=== PATIENT | male | born 1940 | race Caucasian/White ===

== ENCOUNTER 2017-05-01 19:27 | Inpatient (IN) | payer BC, OTHER ==
[~2017-05-01] VITALS: Ht 175.3 cm; Wt 65.8 kg
[2017-05-01] MEDS ORDERED: ONDANSETRON 4 MG/2 ML VIAL IM PRN (21:15)
[2017-05-01] MEDS ORDERED: IBUPROFEN 400 MG TABLET PO PRN (21:15)
[2017-05-01] MEDS ORDERED: DICYCLOMINE HCL 20 MG TABLET PO PRN (21:15)
[2017-05-01] MEDS ORDERED: LORAZEPAM 1 MG TABLET PO PRN ×2 (21:15)
[2017-05-01] MEDS ORDERED: ONDANSETRON ODT 4 MG TAB.RAPDIS SL PRN (21:15)
[2017-05-01] MEDS ORDERED: MAG HYDROX/AL HYDROX/SIMETH 30 ML LIQUID UDC PO PRN (21:15)
[2017-05-01] MEDS ORDERED: CLONIDINE HCL 0.1 MG TABLET PO PRN (21:15)
[2017-05-01] MEDS ORDERED: MAGNESIUM HYDROXIDE 30 ML LIQUID UDC PO PRN (21:15)
[2017-05-01] MEDS ORDERED: THIAMINE HCL 200 MG/2 ML VIAL IM ONE (21:15)
[2017-05-01] MEDS ORDERED: LORAZEPAM 2 MG/1 ML VIAL IM PRN (21:15)
[2017-05-01] MEDS ORDERED: LOPERAMIDE HCL 2 MG CAPSULE PO PRN ×2 (21:15)
[2017-05-01] MEDS ORDERED: ACETAMINOPHEN 325 MG TABLET PO PRN (21:15)
[2017-05-01] MEDS ORDERED: MIRALAX 17 GM POWD.PACK PO PRN (21:15)
[2017-05-01 21:30] VITALS: BP 112/82
--- NOTE | 2017-05-01 21:30 | NUR ---
Pre-admission assessment Patient is a 76-year old, male, seen at intake, AAOx4, no SOB and with anxiety and gross tremors noted at this time. Pt appears intoxicated, verbalized that he is ETOH dependent and last alcohol consumed was today at 1800. Discussed with patient admission policies of the unit. Patient is coherent and able to respond to questions appropriately. Patient reported that he is homeless. Pt is ambulatory with unsteady gait, with use of assistive device to ambulate. Pt reports that for the past 50 years he has been consuming alcohol, with drinking over the last 3 years getting more "problematic" per pt. He reports drinking about 750 ml of Vodka daily and consumed red wine and beer intermittently. Pt refused taking other substances. Vital signs taken and as follows: GZ=653/82, P=72, O2 sat on RA=98%, RR=20, T=97.8. Pt verbalized understanding of instructions and teachings regarding disposal of narcotic and other controlled home meds, unit protocols such as taking of vital signs Q4H and handling and disposal of contraband.
[2017-05-01 21:59] LABS: *AMPHETAMINE, URINE NEGATIVE (NEGATIVE); *BARBITURATE, URINE NEGATIVE (NEGATIVE); *CANNABINOID, URINE NEGATIVE (NEGATIVE); *COCCAINE, URINE NEGATIVE (NEGATIVE); *OPIATE, URINE NEGATIVE (NEGATIVE); *PHENCYCLIDINE SCREEN,URINE NEGATIVE (NEGATIVE)
[2017-05-01 22:05] LABS: ALANINE AMINOTRANSFERASE 52 U/L (16-63); ALKALINE PHOSPHATASE 74 U/L (50-136); AMYLASE 51 U/L (25-115); ASPARTATE AMINOTRANSFERASE 62 U/L (15-37); BILIRUBIN,TOTAL 0.5 mg/dL (0.2-1.0); CARBON DIOXIDE 27 mmol/L (21-32); CHLORIDE 104 mmol/L (98-107); CREATININE 0.8 mg/dL (0.6-1.3); GLUCOSE 95 mg/dL (74-106); LIPASE 327 U/L (73-393); POTASSIUM 3.7 mmol/L (3.5-5.1); TOTAL PROTEIN, SERUM 7.8 g/dL (6.4-8.2); UREA NITROGEN, BLOOD 9 mg/dL (7-18)
[2017-05-01 22:08] LABS: BASOPHILS % (AUTO) 0.3 % (0.0-2.0); EOSINOPHILS # (AUTO) 0.1 K/uL (0.0-0.7); EOSINOPHILS % (AUTO) 1.1 % (0.0-7.0); ETHANOL 347 MG/DL (0-0); HEMATOCRIT 43.2 % (40-50); HEMOGLOBIN 14.7 G/DL (14.0-18.0); LYMPHOCYTES # (AUTO) 2.8 K/UL (0.8-4.8); LYMPHOCYTES % (AUTO) 50.3 % (20.5-51.5); MEAN CORPUSCULAR HGB CONC 34 g/dL (32.0-37.0); MEAN CORPUSCULAR VOLUME 100.2 FL (82.0-92.0); MONOCYTES # (AUTO) 0.6 K/UL (0.1-1.30); MONOCYTES % (AUTO) 10.5 % (0.0-11.0); NEUTROPHILS # (AUTO) 2.2 K/UL (1.8-8.9); NEUTROPHILS % (AUTO) 37.8 % (38.5-71.5); PLATELET COUNT (AUTO) 190 K/UL (150-450); RED BLOOD CELL COUNT(AUTO) 4.32 MIL/UL (4.7-6.1); WHITE BLOOD COUNT (AUTO) 5.7 K/UL (4.0-11.2)
[2017-05-01] MEDS ORDERED: LORAZEPAM 1 MG TABLET PO ONE (22:15)
--- NOTE | 2017-05-01 22:15 | NUR ---
ADMISSION Patient is a 76-year old, male, admitted and escorted by [facility] at 2150 to unit. Patient verbalized that he lives with his and son. Skin check done, no open skin noted. With discoloration of BUE Patient denies Suicidal Ideation nor Homicidal Ideation. No edema noted. Pt is ambulatory with use of assistive device due to unsteady gait. Pt stands 5'9" and weighs 145 pounds per bed scale. Vital signs are as follows: BP-118/83, T-97.7, P-82, RR-18 and SPO2 on RA=98%. Patient is AAOx4 and with with anxiety noted at this time. Lung sounds clear bilaterally upon auscultation. No cough noted and bowel sounds are present on all quadrants. PERRLA and pupils are 2 mm upon visual check. Pt reports NKA, on Regular Diet and is Full Code. Pt denies history of seizure. Per pt, withdrawal symptoms are sweating, chills, flushed skin, nausea, anxiety, depression, fatigue, agitation and gross tremors. Pt reports that he is dependent on ETOH as prefers Vodka. Per pt, he started drinking at age 20 but over the past 3 years has been drinking Vodka 750 ml daily and intermittent with red wine and beer. Last consumed was today at 1800, consumed 375 ml of Vodka and 8-oz beer. Patient verbalized the he does not take other substances besides the one mentioned above. Patient informed PMHx of Anxiety, Depression, Atrial Fibrillation with Pacemaker, Hypertension, Bilateral Knee Surgery in and 2015, Hernia Repair in 2012, BPH and Arthritis. Per pt, his Donor Center Technician is Dr. Short at [facility] and that he has no Psychiatrist. Med recon done. Patient reports he quit smoking more than 20 years ago. Oriented patient to room and instructed with the use of the call light, placed within reach. Fall, universal, seizure and safety precautions implemented. No c/o significant pain at this time. All needs met. Information relayed to Dr. Aranda. Patient refused PNA vaccine and Flu vaccine is out of season. Encouraged patient to use call button for ambulation because Dr. Aranda ordered ambulation with use of wheelchair. Pt verbalized understanding. DVT pumps set-up and patient requested for intermittent use of DVT pumps. CIWA=6. Will continue to monitor.
[2017-05-01 22:28] LABS: THYROID STIMULATING HORMONE 4.486 mIU/mL (0.358-3.740)
[2017-05-01] MEDS ORDERED: LORAZEPAM 1 MG TABLET ONE (23:28)
[2017-05-01] MEDS ORDERED: THIAMINE HCL 200 MG/2 ML VIAL ONE (23:46)
[2017-05-02] VITALS (7 sets, daily range): BP systolic 109–141; BP diastolic 68–95
[2017-05-02] MEDS ORDERED: HYDR-3980 PO (02:15)
[2017-05-02] MEDS ORDERED: ALFU10TA10 PO (02:15)
[2017-05-02] MEDS ORDERED: AMOX500C2 PO (02:15)
[2017-05-02] MEDS ORDERED: DIGO250T PO (02:15)
[2017-05-02] MEDS ORDERED: ATOR80TA PO (02:15)
[2017-05-02] MEDS ORDERED: RIVA20TA PO (02:15)
--- NOTE | 2017-05-02 07:15 | NUR ---
End of Shift Patient is a 76-year old, male, admitted for ETOH Dependence. Pt is Full Code, with NKA and on Regular Diet. Pt with history of A-Fib with Pacemaker, Hypertension, BPH, Bilateral Knee Surgery in 2011 and 2015, Hernia Repair in 2012 and Arthritis. Pt placed by Dr. Aranda on 5-day Ativan taper, to start 05/02/2017. Pt is AAOx4, no SOB noted. Pt with unsteady gait, ambulates with wheelchair and per MD order. With DVT pumps at bedside. Pt uses the pumps intermittently despite explanation of risks and benefits of using the pumps. No skin issues. Fall, universal, seizure and safety prec in place. Call light within reach. Latest CIWA=4, slept for 5 hours. Endorsed to AM shift nurse for continuity of care.
[2017-05-02] MEDS ORDERED: TUBERCULIN,PURIF.PROT.DERIV. 5 TU/0.1 ML TEST ID ONE (09:00)
[2017-05-02] MEDS ORDERED: POTASSIUM CHLORIDE 10 MEQ CAPSULE.SA PO ONE (09:00)
[2017-05-02] MEDS: FOLIC ACID 1 MG TABLET PO SCH (09:15)
[2017-05-02] MEDS: THIAMINE HCL 100 MG TABLET PO SCH (09:15)
[2017-05-02] MEDS: LORAZEPAM 1 MG TABLET PO SCH ×4 (09:15→21:02)
[2017-05-02] MEDS: MULTIVITAMINS,THERAPEUTIC TABLET PO SCH (09:15)
--- NOTE | 2017-05-02 10:55 | NUR ---
START OF SHIFT: RECEIVED PT A/O X 4. HE IS LAYING IN BED WATCHING TV. FINE TREMORS NOTED TO HANDS. HE C/O SOME ANXIETY. ENCOURAGED FLUID AND REST. CIWA 6. ATIVAN TAPER IN PROGRESS TO MANAGE S/S OF W/D. PPD PLANTED TO LFA. PT HAS W/C AT BEDSIDE FOR AMBULATION. CALL WOLFF IN REACH. BED LOCKED AND LOW. WILL CONTINUE TO PROVIDE SAFE AND SUPPORTIVE ENVIRONMENT.
[2017-05-02] MEDS: DIGOXIN 250 MCG TABLET PO SCH (13:04)
--- NOTE | 2017-05-02 15:00 | NUR ---
Pt seen and examined by Dr. Gomez
[2017-05-02] MEDS: RIVAROXABAN 10 MG TABLET PO SCH (17:32)
--- NOTE | 2017-05-02 19:16 | NUR ---
END OF SHIFT: PT CONTINUES ON ATIVAN TAPER. LAST CIWA 8. HE IS ON BED REST AND NEEDS ASSISTANCE WITH BATHROOM AND W/C FOR AMBULATION. HE C/O WEAKNESS AND ANXIETY. HE USES CALL WOLFF DIRECTED. BED LOCKED AND LOW. HE WAS ON BED REST TODAY AND COMPLIANT WITH INCREASED FLUIDS. WILL PASS SHIFT REPORT TO ONCOMING NIGHT NURSE.
--- NOTE | 2017-05-02 20:00 | NUR ---
START OF SHIFT NOTE RECEIVED REPORT FROM DAY SHIFT NURSE. PATIENT IS A 76 YEAR OLD MALE, ADMITTED FOR ETOH DEPENDENCE.PATIENT IS ON 5 DAY ATIVAN TAPER . PATIENT USES ASSISTIVE DEVICE DUE TO UNSTEADY GAIT. PATIENT NEEDS MODERATE ASSISTANCE WITH ADLS. PATIENT WITH PACEMAKER D/T AFIB (ON XARELTO). SCD PUMP AT BEDSIDE. NO SEIZURE HISTORY. PATIENT DID NOT REQUIRE ANY PRN MEDICATION . LAST CIWA 8. PATIENT WITH BUE DISCOLORATION. ON FALL/SEIZURE PRECAUTION. SAFETY MEASURES IN PLACE. CALL LIGHT IN REACH. WILL CONTINUE TO MONITOR
[2017-05-02] MEDS: ALFUZOSIN HCL 10 MG TAB.SR.24H PO SCH (21:02)
[2017-05-02] MEDS: ATORVASTATIN 40 MG TABLET PO SCH (21:02)
[2017-05-03] VITALS (8 sets, daily range): BP systolic 80–156; BP diastolic 60–104
[2017-05-03] MEDS: diphenhydrAMINE 50 MG CAPSULE PO PRN ×2 (03:26→22:50)
--- NOTE | 2017-05-03 03:26 | NUR ---
PRN BENADRYL ADMINISTRATION PATIENT UNABLE TO STAY ASLEEP. PRN BENADRYL GIVEN. WILL MONITOR FOR EFFECTIVENESS
--- NOTE | 2017-05-03 04:26 | NUR ---
CISCO PERDUE RE-ASSESSMENT PATIENT IN BED WITH HIS EYES CLOSED. RESPIRATION EVEN AND UNLABORED. SAFETY MEASURES IN PLACE. CALL LIGHT IN REACH. WILL CONTINUE TO MONITOR
--- NOTE | 2017-05-03 07:05 | NUR ---
Start of Shift Report from the night nurse: pt is a 76 y/o male here for ETOH r/t Vodka and beer 750nmL: 5 day Ativan taper ordered. Pt is a full code, regular diet, NKA, fall and seizure precautions ordered. HHx: pacemaker with A.fib and pt is on Lanoxin and Xarelto, Bilateral knee replacement, HTN, BPH, Arthritis and Hernia repain 2012, Syncope on the second week of April. V/S stable. Skin is intact with no open wounds. Pt is confused with unsteady gait and uses W/C Pt has B&B incontinence with diaper and urinal at bed side. Pt has VTE 3 so SCD in use. PRN Benadryl given last night for sleep. Last CIWA 4. Pt is asleep in yelena. WIll cont. to monitor the pt.
--- NOTE | 2017-05-03 07:21 | NUR ---
END OF SHIFT NOTE PATIENT IS A 76 YEAR OLD MALE, ADMITTED FOR ETOH DEPENDENCE.PATIENT IS ON 5 DAY ATIVAN TAPER . PATIENT USES ASSISTIVE DEVICE DUE TO UNSTEADY GAIT. PATIENT NEEDS MODERATE ASSISTANCE WITH ADLS. PATIENT WITH PACEMAKER D/T AFIB (ON XARELTO). SCD PUMP AT BEDSIDE. NO SEIZURE HISTORY. PATIENT WITH BUE DISCOLORATION. PATIENT PATIENT NOTED UNABLE TO STAY ASLEEP, PRN BENADRYL GIVEN. PATIENT NOTED WITH MILD CONFUSION, REDIRECTION PROVIDED. PATIENT RE-ORIENTED TO USE CALL LIGHT FOR ASSISTANCE. ON FALL/SEIZURE PRECAUTION. SAFETY MEASURES IN PLACE. CALL LIGHT IN REACH. WILL CONTINUE TO MONITOR. SLEPT 5 HOURS. FLUID INTAKE 500 ML. VOIDED X 1. BM X 1. LAST CIWA 4 .
--- NOTE | 2017-05-03 07:30 | NUR ---
MD communication Pt noted to have an SpO2 79-83% on RA and a BP of 80/60. Dr Aranda notified ordered stat EKG, CXR and 1:1 sitter. Orders entered, unable to enter orders.
--- NOTE | 2017-05-03 07:35 | NUR ---
Desaturation, Hypotension, Dysrhythmia & MD Communication During the start of my shift I'm notified by DANDY TENDER that the pt's SpO2 87% on RA, so I assess pt's status with the pt in room alert, confused, disoriented, denies chest pain, c/o light headedness while resting in bed with gross tremors and chills, BLE's and BUE's cool to touch, the pulse oximeter is on pt's left index finger SpO2 is 80-82% RA, BP 80/60 in semi-fowlers, HR 69, RR 14, T 98.1; NC 2LPM given to get the oxygen only to 87% so Simple mask ineffective at 5LPM so NRM 15L given and is effective with multiple heat pads blankets causing increased tissue perfusion and SpO2 increase to 98%. I called Dr. Aranda and new orders for EKG, CXR, PO water with 2 bottles of water and a sitter 1:1 for safety STAT. I changed the NRM to Simple mask at 5LPM to keep SpO2 94-95% stable with Respiratory Therapist assistance during 12 lead EKG. BP increased to 104/60 with manual BP & AP 66 bpm with irregular heart beats. EKG results of PVC's & A.fib with Dr. Aranda notified; new orders in progress. I will cont. to monitor the pt.
--- NOTE | 2017-05-03 08:45 | NUR ---
New Orders & Medication Non-Administration Ativan New Orders for Chem 22, BMP, Troponin, BNP, Echo, and MD Consult with Technical Engineer and to HOLD the Ativan 0900am dose so no Ativan given at this time. Will cont. to monitor the pt.
[2017-05-03] MEDS: LORAZEPAM 1 MG TABLET PO SCH ×2 (09:00→15:27)
[2017-05-03 09:54] LABS: BASOPHILS % (AUTO) 0.4 % (0.0-2.0); EOSINOPHILS # (AUTO) 0.1 K/uL (0.0-0.7); HEMATOCRIT 41.7 % (40-50); HEMOGLOBIN 14.2 G/DL (14.0-18.0); LYMPHOCYTES # (AUTO) 0.9 K/UL (0.8-4.8); LYMPHOCYTES % (AUTO) 17.4 % (20.5-51.5); MEAN CORPUSCULAR HEMOGLOBIN 33.7 UUG (27.0-31.0); MEAN CORPUSCULAR HGB CONC 34 g/dL (32.0-37.0); MEAN CORPUSCULAR VOLUME 99.1 FL (82.0-92.0); MONOCYTES # (AUTO) 0.8 K/UL (0.1-1.30); MONOCYTES % (AUTO) 15.2 % (0.0-11.0); NEUTROPHILS # (AUTO) 3.6 K/UL (1.8-8.9); PLATELET COUNT (AUTO) 156 K/UL (150-450); RED BLOOD CELL COUNT(AUTO) 4.21 MIL/UL (4.7-6.1); WHITE BLOOD COUNT (AUTO) 5.4 K/UL (4.0-11.2)
[2017-05-03 09:55] LABS: CARBON DIOXIDE 29 mmol/L (21-32); CHLORIDE 99 mmol/L (98-107); CREATININE 0.8 mg/dL (0.6-1.3); GLUCOSE 124 mg/dL (74-106); POTASSIUM 3.9 mmol/L (3.5-5.1); UREA NITROGEN, BLOOD 6 mg/dL (7-18)
[2017-05-03] MEDS: THIAMINE HCL 100 MG TABLET PO SCH (10:04)
[2017-05-03] MEDS: FOLIC ACID 1 MG TABLET PO SCH (10:05)
[2017-05-03] MEDS: DIGOXIN 250 MCG TABLET PO SCH (10:05)
[2017-05-03] MEDS: MULTIVITAMINS,THERAPEUTIC TABLET PO SCH (10:05)
[2017-05-03 10:08] LABS: MAGNESIUM 1.5 mg/dL (1.8-2.4); PHOSPHOROUS 3.8 mg/dL (2.5-4.9)
[2017-05-03] MEDS ORDERED: MAGNESIUM OXIDE 400 MG TABLET PO ONE (10:15)
--- NOTE | 2017-05-03 10:20 | NUR ---
New Orders New result of low Mg 1.[address] Aranda notified and new order for Mag-Ox 800mg ONCE given as ordered. New Orders for Digoxin titration before next dose tomorrow.
[2017-05-03 10:54] LABS: EOSINOPHILS % (MANUAL) 2 % (0-8); LYMPHOCYTES % (MANUAL) 17 % (20-40); MONOCYTES % (MANUAL) 11 % (2-10); NEUTROPHILS % (MANUAL) 70 % (42-75)
[2017-05-03 13:09] LABS: HEPATITIS B SURFACE AG Negative (Negative)
--- NOTE | 2017-05-03 15:28 | NUR ---
Therapist prompted client to attend daily group sessions. Client stated that he would consider attending.
[2017-05-03] MEDS ORDERED: IV NS 1000 ML 500 ML IV SCH (16:00)
--- NOTE | 2017-05-03 16:00 | NUR ---
New Orders-IVF Infusion New orders for NS 0.9% 500mL running at 50cc/H given ONCE, so started a #22g LAC with IVF running as ordered and no infiltration noted. Precision Thread Grinder Operator consult and the MD evaluated the pt on RA for 2 minutes with pt stable on RA so new order to HOLD on the Simple Mask 6LPM since the pt is stable with SpO2 97% RA. No new orders recommended from the adobe flex developer since the pt is stable. Will cont. to monitor the pt with sitter 1:1 at bed side.
[2017-05-03] MEDS: RIVAROXABAN 10 MG TABLET PO SCH (17:55)
--- NOTE | 2017-05-03 19:36 | NUR ---
End of Shift Report to the night nurse: pt is a 76 y/o male here for ETOH r/t Vodka and beer 750nmL: 5 day Ativan taper ordered. Pt is a full code, regular diet, NKA, fall and seizure precautions ordered. HHx: pacemaker with Agustín and pt is on Lanoxin and Xarelto with new orders for Dig Titration tomorrow, Bilateral knee replacement, HTN, BPH, Arthritis and Hernia repair 2012, Syncope on the second week of April. V/S unstable with episodes of destat and O2 used during my shift and new orders for NS 500mL at 50cc/H with #22G LAC running as ordered. Dysrhythmia during my shift for cardiac consult, Echo done, EkG 12 lead done and cardiac enzymes, CBC Chem 22 done and new orders for Mag-Ox 800mg with low Mag 1.5 during my shift. Skin is intact with no open wounds. Pt is confused with unsteady gait and on CBR with new order for sitter during my shift. Pt has B&B incontinence with diaper and urinal at bed side, assistance to BR is pt insists. Pt has VTE 3 so SCD in use. Pt excused from group therapy. Last CIWA 7.
--- NOTE | 2017-05-03 19:45 | NUR ---
Start of Shift Note: Report received from day shift nurse. Pt is a 76 yo male admitted on 05/01/2017 for medically-supervised withdrawal from ETOH. Pt reported drinking 750ml vodka daily for > 3 years. Pt on a 5-day Ativan taper. Pt received with last CIWA=7, and no PRN medications were given during day shift; Mag-Ox was given for hypomagnesia. Pt is a full code, is on a regular diet, and reports NKA. Pt has 22G in left AC running NS at 50mls/hr. PMHx: a-fib with pacemaker and on Xarelto and Digoxin, HTN, BPH, bilateral knee sx, hernia repair, arthritis. Pt received in room and reports anxiety; pt noted to be restless, agitated AEB repeated pulling at IV dressing and bedding, moderate tremor, disoriented to place and time. Pt reports confusion and auditory and visual hallucination with mild tactile disturbances. Lungs are CTA throughout, no edema noted. Bed is in low position and locked, side rails up x2, call light within reach. Will continue to monitor.
[2017-05-03] MEDS: ALFUZOSIN HCL 10 MG TAB.SR.24H PO SCH (20:57)
[2017-05-03] MEDS: ATORVASTATIN 40 MG TABLET PO SCH (20:57)
[2017-05-03] MEDS ORDERED: LORAZEPAM 1 MG TABLET PO SCH (21:00)
--- NOTE | 2017-05-03 22:50 | NUR ---
PRN Benadryl: Patient noted to be restless and unable to sleep. Administered PRN Benadryl as ordered. Will continue to monitor.
[2017-05-03] MEDS ORDERED: LORAZEPAM 1 MG TABLET PO PRN ×2 (23:15)
[2017-05-03] MEDS ORDERED: LORAZEPAM 1 MG TABLET PO ONE (23:15)
--- NOTE | 2017-05-03 23:29 | NUR ---
Communication/Ativan 2mg x1: Patient restless, agitated, anxious, pulling at clothing and IV line; reports visual and auditory hallucinations, and disoriented by time and place. CIWA is 24. Dr Aranda contacted and Ativan 2mg PO x1 ordered. Medication administered as ordered. Will continue to monitor.
[2017-05-03] MEDS ORDERED: LORAZEPAM 1 MG TABLET ONE (23:39)
--- NOTE | 2017-05-03 23:50 | NUR ---
PRN Reassessment: Patient reports continuing inability to sleep. PRN Benadryl not effective. Will notify MD and continue to monitor
[2017-05-04] VITALS: BP 131/99
--- NOTE | 2017-05-04 00:30 | NUR ---
Ativan 2mg x1 Reassessment: CIWA decreased from 24 to 12 one hour after Ativan 2mg PO administered; patient is slightly less agitated, but still restless and disoriented despite multiple attempts at reorientation.
--- NOTE | 2017-05-04 03:49 | NUR ---
Behavioral Note: Patient is repeatedly trying to get out of bed, taking off his clothes, pulling at IV line, and removing bedding; when asked what he needs to get out of bed for, he replies that he does not know. Patient noted to be talking to himself, and responding to staff radio that nurse has on person. Patient requires repeated and frequent reorienting and redirection. Patient is non-compliant with urinal and insists on getting up out of bed to urinate, despite being unsteady on his feet and frequent reminders to ask [employer] DRIVER and nurse for help transferring. Patient continues on 1:1 with [employer] DRIVER for safety. All safety precautions are in place. Will continue to monitor.
[2017-05-04 04:30] VITALS: BP 132/95
--- NOTE | 2017-05-04 05:05 | NUR ---
PRN Ativan 2mg: Patient disoriented by place and time >2 days, noted with moderate tremor and unable to hold drink. ORNAMENTAL METALWORK DESIGNER reports that patient is having conversations with himself and not making sense. CIWA is 17. Administered PRN Ativan 2mg PO as ordered according to CIWA score. Will continue to monitor. Addendum: 05/04/17 at 0522 by ROBERTO NUNEZ RN Patient repeatedly removing all of his clothing and trying to get out of bed. Patient often refuses to get back in bed while unsteady on feet, and refuses assistance to transfer
[2017-05-04] MEDS ORDERED: LORAZEPAM 1 MG TABLET ONE (05:11)
--- NOTE | 2017-05-04 06:05 | NUR ---
PRN Reassessment: CIWA decreased from 17 to 11 thirty minutes after PRN Ativan 2mg administration.
--- NOTE | 2017-05-04 07:15 | NUR ---
End of Shift Note: Pt is a 76 yo male admitted to [facility] on 05/01/2017 for medically-supervised withdrawal from ETOH. Pt reported a PMHx of A-fib with pacemaker (Xarelto and Digoxin), HTN, BPH, bilateral knee sx, hernia repair, and arthritis. Pt is a full code. Pt is on a regular diet. Pt reports NKA. Pt has 22G SL in right AC. Pt reported drinking 750ml vodka daily for > 3 years, and was placed on a 5-day Ativan taper. Scheduled medication regime managed s/s of withdrawal this shift, and Ativan 2mg PO x2 was required for elevated CIWA(24, 17) with disorientation and hallucinations. Last CIWA=11 at 06:00.V/S stable throughout shift. Total fluid intake this shift: 1200 ml; output: urine x 6 and BM x 0. PRN Benadryl was given for inability to sleep, which was not effective and pt slept 30 minutes this shift. Pt is currently in bed, all needs attended and met. Pt continues on 1:1 for safety. Pt endorsed to day shift nurse.
--- NOTE | 2017-05-04 07:30 | NUR ---
START OF SHIFT Rcvd endorsement from ongoing nurse, client is is bed, a/o x 3, client presents with anxious mood, fine tremors, flashed face. he is on a 1:1 sitter for unsteady gait, promoting safety. He has fading skin discolorations on bilateral arm, skin intact. Hep lock on R AC 22G intact/patent. Client is a 76 yo male admitted to [facility] on 05/01/2017 for medically-supervised withdrawal from ETOH. He is on day 2nd of 5 Ativan taper, tolerating well. Client reported a PMHx of A-fib with pacemaker (Xarelto and Digoxin), HTN, BPH, bilateral knee sx, hernia repair, and arthritis. Client is full code, regular diet, NKA. One time dose Ativan 2mg PO x 2 was administered for elevated CIWA(24, 17) with disorientation and hallucinations. Last CIWA/11 @ 0600. PRN Benadryl was given for inability to sleep, ineffective client slept 30 minutes. Side rails x 2 up/padded. Call light within reach.
[2017-05-04 08:00] VITALS: BP 118/84
[2017-05-04] MEDS: LORAZEPAM 1 MG TABLET PO SCH ×3 (08:12→20:14)
[2017-05-04] MEDS: THIAMINE HCL 100 MG TABLET PO SCH (08:12)
[2017-05-04] MEDS: FOLIC ACID 1 MG TABLET PO SCH (08:12)
[2017-05-04] MEDS: MULTIVITAMINS,THERAPEUTIC TABLET PO SCH (08:12)
[2017-05-04 08:23] LABS: CARBON DIOXIDE 25 mmol/L (21-32); CHLORIDE 102 mmol/L (98-107); CREATININE 0.8 mg/dL (0.6-1.3); DIGOXIN 0.4 ng/mL (0.9-2.0); GLUCOSE 171 mg/dL (74-106); MAGNESIUM 1.8 mg/dL (1.8-2.4); PHOSPHOROUS 3.5 mg/dL (2.5-4.9); POTASSIUM 3.7 mmol/L (3.5-5.1); UREA NITROGEN, BLOOD 8 mg/dL (7-18)
[2017-05-04] MEDS: DIGOXIN 250 MCG TABLET PO SCH (08:42)
[2017-05-04] MEDS ORDERED: LORAZEPAM 1 MG TABLET PO SCH (09:00)
--- NOTE | 2017-05-04 09:00 | NUR ---
Zero induration noted at L F/A TB site.
[2017-05-04 10:20] LABS: THYROID STIMULATING HORMONE 4.707 mIU/mL (0.358-3.740)
[2017-05-04 12:00] VITALS: BP 113/63
--- NOTE | 2017-05-04 13:15 | NUR ---
MD communication Per MD order, bladder scan completed, noted to be >170ml, Dr Aranda notified, ordered insertion of rush catheter. Orders entered.
[2017-05-04] MEDS ORDERED: QUETIAPINE FUMARATE 25 MG TABLET PO PRN ×2 (13:30)
--- NOTE | 2017-05-04 14:00 | NUR ---
Client refused rush catheter stating, "No, I have had too many of those lately, plus I am going on my own." Charge nurse and Dr. Aranda notified.
--- NOTE | 2017-05-04 15:00 | NUR ---
Straight cath done, no urine returned, bladder non-distended, client tolerated well. Wet diaper changed prior to procedure.
[2017-05-04] MEDS ORDERED: LORAZEPAM 1 MG TABLET PO PRN (15:45)
[2017-05-04] MEDS ORDERED: POTASSIUM CHLORIDE 10 MEQ CAPSULE.SA PO ONE (15:45)
[2017-05-04] MEDS ORDERED: MAGNESIUM OXIDE 400 MG TABLET PO ONE (16:00)
[2017-05-04 16:55] VITALS: BP 113/63
[2017-05-04] MEDS: RIVAROXABAN 10 MG TABLET PO SCH (17:07)
--- NOTE | 2017-05-04 17:26 | NUR ---
Urine, clean catch delivered to lab for urinalysis.
[2017-05-04 18:03] LABS: *BILIRUBIN,URIN NEGATIVE (NEGATIVE); *BLOOD, URINE NEGATIVE (NEGATIVE); *CLARITY,URINE CLEAR (CLEAR); *COLOR,URINE YELLOW (YELLOW); *KETONES,URINE NEGATIVE (NEGATIVE); *PROTEIN,URINE NEGATIVE (NEGATIVE); *UROBILINOGEN,URINE 0.2 E.U./dl (NORMAL); LEUKOCYTE ESTERASE ,URINE NEGATIVE (NEGATIVE); NITRITE, URINE NEGATIVE (NEGATIVE); UGLUCOSE NEGATIVE (NEGATIVE)
[2017-05-04 18:25] LABS: WBC,URINE 0-3 /HPF (0-3)
[2017-05-04 18:26] LABS: MUCUS,URINE FEW /LPF (0-FEW)
--- NOTE | 2017-05-04 19:43 | NUR ---
END OF SHIFT Client is a 76 yo male admitted to [facility] on 05/01/2017 for medically-supervised withdrawal from ETOH. Client was not compliant with group therapy, client is a/o x 2, name and place. last CIWA 9 @ 1600 with disorientation and visual hallucinations. Client is full code, regular diet, NKA. Client has 22G SL in right AC. V/S stable throughout shift. Adequate intake and output. Client consumes ~25% of meals. Client is currently in bed, all needs attended and met. Client continues on 1:1 for safety. Pt endorsed to incoming nurse.
--- NOTE | 2017-05-04 19:45 | NUR ---
Start of Shift Note: Report received from day shift nurse. Pt is a 76 Y/O male admitted on 05/01/2017 for medically-supervised withdrawal from alcohol. Pt reports drinking vodka 750ml/day for > 3 years. Pt continues on a 5-day Ativan taper. Pt received with last CIWA=9, and no PRN medications were given during day shift. New order today for PRN Seroquel for sleep and agitation. Pt is a full code, on a regular diet, and reports NKDA/NKFA. Pt has 22G SL in right AC. PMHx: a-fib with pacemaker, HTN, BPH, bilateral knee sx, hernia repair, and arthritis. Pt received in room, noted to be disoriented to time and place, restless, with hallucinations. Bed is in low position and locked, side rails up x2, call light within reach. Will continue to monitor.
[2017-05-04 20:00] VITALS: BP 108/61
[2017-05-04] MEDS: ATORVASTATIN 40 MG TABLET PO SCH (20:14)
--- NOTE | 2017-05-04 20:14 | NUR ---
PRN Seroquel 50mg: Patient noted to be restless with interrupted sleeping patterns, and unable to stay asleep for longer than 15 minutes. Administered PRN Seroquel 50mg as ordered. Will continue to monitor.
[2017-05-04] MEDS: ALFUZOSIN HCL 10 MG TAB.SR.24H PO SCH (20:15)
--- NOTE | 2017-05-04 21:15 | NUR ---
PRN Reassessment: Patient continues with restlessness and unable to sleep for any extended period of time. PRN Seroquel not effective. Will continue to monitor.
--- NOTE | 2017-05-04 22:28 | NUR ---
PRN Seroquel 25mg: Patient noted to be confused and very restless with increasing agitation; patient repeatedly taking off all of his clothing and diaper. Patient continues to be non-compliant with instructions to use wheelchair and wait for assistance to transfer d/t confusion. Administered PRN Seroquel 25mg PO as ordered. Will continue to monitor.
--- NOTE | 2017-05-04 23:20 | NUR ---
PRN Reassessment and PRN Ativan 2mg: Patient continues with restlessness and agitation. PRN Seroquel 25mg not effective. Administered PRN Ativan 2mg as ordered. Will continue to monitor.
[2017-05-05] VITALS: BP 130/88
--- NOTE | 2017-05-05 00:20 | NUR ---
PRN Reassessment: Patient with less frequent episodes of restlessness and agitation. PRN Ativan 2mg mildly effective. Will continue to monitor.
[2017-05-05 04:00] VITALS: BP 123/91
--- NOTE | 2017-05-05 04:00 | NUR ---
CIWA Deferred: CIWA is deferred for sleep. All safety precautions are in place. Will continue to monitor. Addendum: 05/05/17 at 0510 by ROBERTO NUNEZ RN Amended: Links added.
--- NOTE | 2017-05-05 05:33 | NUR ---
Psychiatry communication: Dr. French ordered to change 50mg Seroquel PO HS to BID. Orders noted and carried out.
--- NOTE | 2017-05-05 07:04 | NUR ---
End of Shift Note: Pt is a 76 Y/O male admitted to [facility] on 05/01/17 for medically-supervised withdrawal from ETOH. Pt reported a PMHx of A-fib, pacemaker, HTN, BPH, bilateral knee sx, hernia repair, arthritis. Pt is a full code, on a regular diet, NKA. Pt reported drinking 750ml vodka daily for over 3 years. Pt continues on a 5-day Ativan taper. Pt is on 1:1 for safety/unsteady gait. Scheduled medication regime managed s/s of withdrawal this shift, and PRN Ativan 2mg was given for agitation, and PRN Seroquel 25mg was given for agitation/psychosis. Last CIWA=18 at 00:00.V/S stable throughout shift. Total fluid intake this shift: 500 ml; output: urine x 5 and BM x 1. PRN Seroquel was given for inability to sleep, which was not effective as pt slept 3 hours this shift. Pt is currently in bed, all needs attended and met. Pt endorsed to day shift nurse.
--- NOTE | 2017-05-05 07:30 | NUR ---
START OF SHIFT Rcvd endorsement from ongoing nurse, client is in room, he sound asleep, easy to arouse, RR 16 even, non-labored. Client is a 76 yo male admitted to [facility] on 05/01/17 for medically-supervised withdrawal from ETOH. Client is full code, regular diet, NKA. Client continues on 5-day Ativan taper (3rd day). Client is on 1:1 for safety/unsteady gait. PRN Ativan 2mg given for agitation, Seroquel 25mg for agitation/psychosis, Seroquel 50mg for inability to sleep. Last CIWA=18 @ 2400. PRN Seroquel was given for inability to sleep, le slept 3 hrs. Side rails x 2 up/padded. Call light within reach. Will continue to monitor.
[2017-05-05] MEDS ORDERED: LORAZEPAM 1 MG TABLET PO SCH ×2 (09:00)
[2017-05-05] MEDS ORDERED: QUETIAPINE FUMARATE 25 MG TABLET PO PRN (09:00)
[2017-05-05 09:35] VITALS: BP 113/69
[2017-05-05] MEDS: FOLIC ACID 1 MG TABLET PO SCH (09:36)
[2017-05-05] MEDS: DIGOXIN 250 MCG TABLET PO SCH (09:36)
[2017-05-05] MEDS: MULTIVITAMINS,THERAPEUTIC TABLET PO SCH (09:36)
[2017-05-05] MEDS: LORAZEPAM 1 MG TABLET PO SCH ×2 (09:36→20:31)
[2017-05-05] MEDS: THIAMINE HCL 100 MG TABLET PO SCH (09:36)
[2017-05-05 12:00] VITALS: BP 110/73
[2017-05-05] MEDS ORDERED: IV D5 1/2 NS 1000 ML 1,000 ML IV PRN (14:45)
--- NOTE | 2017-05-05 15:30 | NUR ---
R AC peripheral line dislodge, new peripheral line @ R F/A x 1 attempt, 20G, D5, 1/2NS running @ 50ml/hr x 20hr for hydration, client tolerating well.
--- NOTE | 2017-05-05 15:45 | NUR ---
Client transported to radiology department via bed, for CT Head w/o contrast. sitter by side.
--- NOTE | 2017-05-05 15:49 | NUR ---
Therapist prompted client to attend daily group sessions, and client stated that he would consider attending if he was feeling up to going.
--- NOTE | 2017-05-05 16:06 | NUR ---
Client back in room, tolerated CT Head w/o contrast well, per data reduction technician. Client a & o x 3. IV therapy running at prescribed rate.
[2017-05-05 16:15] VITALS: BP 118/71
[2017-05-05] MEDS: RIVAROXABAN 10 MG TABLET PO SCH (17:49)
--- NOTE | 2017-05-05 19:04 | NUR ---
END OF SHIFT Client is a 76 yo male admitted to [facility] on 05/01/2017 for medically-supervised withdrawal from ETOH. Client was not compliant with group therapy, client in in bed, he is a/o x 4. Last CIWA 7 @ 1600. Client is full code, regular diet, NKA. Client has 20G peripheral line in right F/A D5 1/2 NS running at prescribed rate for hydration, tolerating well. CT Head w/o contrast to r/o intracranial bleeding, client is on Xarelto. V/S stable throughout shift. Intake 600mL, void x 2. Client with decreased appetite he ate ~50%. All needs attended and met. Client continues on 1:1 for safety. Pt endorsed to incoming nurse.
--- NOTE | 2017-05-05 19:30 | NUR ---
Start of shift: Received report from outgoing nurse. Patient is on 1:1 sitter for safety observation. Patient is high fall risk. Remained on medical supervision for ETOH withdrawal. CIWA assessed and charted accordingly. Alert and oriented x3 at this time. Reoriented to reason for hospitalization. Received report of patient with periodic confusion. Behavior; calm and cooperative with care. Denies SI/HI/AVH. Will continue to monitor behavior and medication effectiveness.
[2017-05-05 20:28] VITALS: BP 105/79
[2017-05-05] MEDS: ATORVASTATIN 40 MG TABLET PO SCH (20:30)
[2017-05-05] MEDS: ALFUZOSIN HCL 10 MG TAB.SR.24H PO SCH (20:31)
[2017-05-06 00:27] VITALS: BP 120/78
--- NOTE | 2017-05-06 04:25 | NUR ---
Patient asleep. Unable to assess CIWA at this time. Respiration even and unlabored.
[2017-05-06 05:20] VITALS: BP 101/69
--- NOTE | 2017-05-06 06:52 | NUR ---
End of shift: Patient slept 10 hours. Calm and cooperative with care. 1:1 sitter at the bedside. No behavior issues tonight. PM/AM care done. No signs of distress. D51/2NS continues to run at 50ml/hr. Alert and oriented x3. Interacted with sitter and the bond underwriter.
[2017-05-06 07:29] LABS: BASOPHILS % (AUTO) 0.3 % (0.0-2.0); EOSINOPHILS # (AUTO) 0.2 K/uL (0.0-0.7); EOSINOPHILS % (AUTO) 3.2 % (0.0-7.0); HEMATOCRIT 40.5 % (40-50); HEMOGLOBIN 13.4 G/DL (14.0-18.0); LYMPHOCYTES # (AUTO) 1.4 K/UL (0.8-4.8); LYMPHOCYTES % (AUTO) 24.3 % (20.5-51.5); MEAN CORPUSCULAR HEMOGLOBIN 32.9 UUG (27.0-31.0); MEAN CORPUSCULAR HGB CONC 33 g/dL (32.0-37.0); MEAN CORPUSCULAR VOLUME 99.3 FL (82.0-92.0); MONOCYTES # (AUTO) 0.8 K/UL (0.1-1.30); MONOCYTES % (AUTO) 13.8 % (0.0-11.0); NEUTROPHILS # (AUTO) 3.4 K/UL (1.8-8.9); NEUTROPHILS % (AUTO) 58.4 % (38.5-71.5); PLATELET COUNT (AUTO) 145 K/UL (150-450); RED BLOOD CELL COUNT(AUTO) 4.08 MIL/UL (4.7-6.1); WHITE BLOOD COUNT (AUTO) 5.8 K/UL (4.0-11.2)
--- NOTE | 2017-05-06 07:30 | NUR ---
START OF SHIFT Rcvd endorsement from ongoing nurse, client is in room, he sound asleep, easy to arouse, he reports feeling better, rested, he is a/o x 3, he presents with depressed mood. Client is a 76 yo male admitted to [facility] on 05/01/17 for medically-supervised withdrawal from ETOH. Client is full code, regular diet, NKA. Client completed 5-day Ativan taper, tolerated well. Client is on 1:1 for safety/unsteady gait. Client had an uneventful night, he slept 10 hrs. Adequate intake and output, wet diaper x 2 and stool x 1. Last CIWA 2 @ 1999. Side rails x 2 up/padded. Call light within reach. Will continue to monitor.
[2017-05-06 08:01] LABS: CARBON DIOXIDE 25 mmol/L (21-32); CHLORIDE 102 mmol/L (98-107); CREATININE 0.7 mg/dL (0.6-1.3); GLUCOSE 119 mg/dL (74-106); MAGNESIUM 1.8 mg/dL (1.8-2.4); PHOSPHOROUS 4.2 mg/dL (2.5-4.9); POTASSIUM 3.9 mmol/L (3.5-5.1); UREA NITROGEN, BLOOD 7 mg/dL (7-18)
[2017-05-06 08:30] VITALS: BP 115/68
[2017-05-06] MEDS ORDERED: LORAZEPAM 1 MG TABLET PO SCH ×2 (09:00→21:00)
[2017-05-06] MEDS: THIAMINE HCL 100 MG TABLET PO SCH (09:38)
[2017-05-06] MEDS: MULTIVITAMINS,THERAPEUTIC TABLET PO SCH (09:38)
[2017-05-06] MEDS: DIGOXIN 250 MCG TABLET PO SCH (09:38)
[2017-05-06] MEDS: FOLIC ACID 1 MG TABLET PO SCH (09:38)
--- NOTE | 2017-05-06 10:00 | NUR ---
IV therapy completed, client tolerated well.
[2017-05-06] MEDS ORDERED: MAGNESIUM OXIDE 400 MG TABLET PO ONE (10:30)
[2017-05-06] MEDS ORDERED: POTASSIUM CHLORIDE 10 MEQ CAPSULE.SA PO ONE (10:30)
[2017-05-06 12:55] VITALS: BP 98/62
--- NOTE | 2017-05-06 15:00 | NUR ---
Hep lock 20G on R forearm dislodged.
[2017-05-06 16:55] VITALS: BP 101/63
[2017-05-06] MEDS: RIVAROXABAN 10 MG TABLET PO SCH (17:33)
--- NOTE | 2017-05-06 18:59 | NUR ---
END OF SHIFT Endorsed client to incoming nurse, Dr Aranda extended Ativan taper one last dose @ 2100. 05/07/17 Off notify MD if CIWA >8. Ativan 1 PO PRN Q2H CIWA 8-14, Ativan 2mg Q2H CIWA 15+ and notify MD. Last CIWA 3 @ 1700. He is in bed a/o x 4, he is with anxiety and mild weakness on BLE, sitter at bedside promoting safety, he complains of hearburn, but wants to wait until tonight to get PRN Maalox. Client consumes 75-100% of meals, adequate output, wet diaper x 2, stool x 2. He completed IV fluid therapy for hydration, hep lock 20G was dislodged. Side rails x 2 up/padded. Seizure precautions. VTE 3, client is on Xarelto, Intermittent Pneumatic CD on and client tolerated well.
[2017-05-06 20:00] VITALS: BP 113/84
--- NOTE | 2017-05-06 20:00 | NUR ---
Start of Shift Pt is a 76 year old male admitted for ETOH dependence, placed on 5 day Ativan taper. Pt reported consuming Vodka 750ml/daily for more than 3 years. PMH: a-fib with pacemaker and on Xarelto and Digoxin, HTN, BPH, bilateral knee sx, hernia repair, arthritis. NKA, regular diet, fall/seizure precautions and full code. Upon assessment, pt is in bed alert/oriented x4, he presents with depressed mood, and reports feeling anxious and fatigued. VTE 3, Intermittent Pneumatic CD on and client tolerated well. Sitter at bedside promoting safety. Medications due, Safety measures in place, call light within reach, side rails up x2, bed locked and in low position. Will continue to monitor.
[2017-05-06] MEDS: ATORVASTATIN 40 MG TABLET PO SCH (20:17)
[2017-05-06] MEDS: ALFUZOSIN HCL 10 MG TAB.SR.24H PO SCH (20:19)
[2017-05-06 22:49] LABS: *AMPHETAMINE, URINE NEGATIVE (NEGATIVE); *BARBITURATE, URINE NEGATIVE (NEGATIVE); *CANNABINOID, URINE NEGATIVE (NEGATIVE); *COCCAINE, URINE NEGATIVE (NEGATIVE); *OPIATE, URINE NEGATIVE (NEGATIVE); *PHENCYCLIDINE SCREEN,URINE NEGATIVE (NEGATIVE)
[2017-05-06] MEDS ORDERED: diphenhydrAMINE 50 MG CAPSULE PO PRN (23:00)
--- NOTE | 2017-05-06 23:12 | NUR ---
PRN Administration Pt reports feeling restless, unable to fall asleep. Benadryl 50mg PRN administered for sleeplessness as ordered. Safety measures in place. Will continue to monitor.
[2017-05-06] MEDS ORDERED: diphenhydrAMINE 50 MG CAPSULE ONE (23:15)
[2017-05-07] VITALS: BP 111/78
--- NOTE | 2017-05-07 | NUR ---
Vital Signs BP 111/78, pulse 70, resp 16, Spo2 97% room air, temp 98.1, no reports of pain 0/10 CIWA deferred d/t pt sleeping - to assess while pt is awake as ordered. Safety measures in place. Will continue to monitor.
--- NOTE | 2017-05-07 00:12 | NUR ---
PRN Reassessment Pt is sleeping, respirations even/unlabored. Safety measures in place, sitter at bedside, will continue to monitor.
[2017-05-07 04:00] VITALS: BP 107/73
--- NOTE | 2017-05-07 04:00 | NUR ---
Vital Signs BP 107/73, pulse 62, resp 16, Spo2 96% room air, temp 97.9, no reports of pain 0/10 CIWA deferred d/t pt sleeping - to assess while pt is awake as ordered. Safety measures in place. Will continue to monitor.
--- NOTE | 2017-05-07 07:00 | NUR ---
End of Shift Pt is a 76 year old male admitted for ETOH dependence, placed on 5 day Ativan taper. Pt reported consuming Vodka 750ml/daily for more than 3 years. PMHx: a-fib with pacemaker and on Xarelto and Digoxin, HTN, BPH, bilateral knee sx, hernia repair, arthritis. NKA, regular diet, fall/seizure precautions and full code. During shift, pt remained in bed alert/oriented x4, he presented with depressed mood, and reported feeling anxious and fatigued scheduled medications administered, CIWA 3. Benadryl 50mg administered for sleeplessness. Pt slept for 7 hours, intake of 1200 ml PO,1 diaper changes, 4 voids and stool x0. VTE 3, Intermittent Pneumatic CD on and client tolerated well. Sitter at bedside promoting safety. Medications due, Safety measures in place, call light within reach, side rails up x2, bed locked and in low position. Endorsed to day shift nurse.
--- NOTE | 2017-05-07 07:30 | NUR ---
START OF SHIFT Rcvd endorsement from ongoing nurse, client is in room, he is a/o x4, he presents with depressed mood, flat affect. Client is a 76 yo male admitted to [facility] on 05/01/17 for medically-supervised withdrawal from ETOH. Client is full code, regular diet, NKA. Client completed 5-day Ativan taper, tolerated well. Client is on 1:1 for safety/unsteady gait. Client had an uneventful night, he slept 7 hrs. Last CIWA 3 @ 1999. Side rails x 2 up/padded. Call light within reach. Will continue to monitor.
[2017-05-07 08:55] VITALS: BP 97/71
[2017-05-07] MEDS: THIAMINE HCL 100 MG TABLET PO SCH (09:22)
[2017-05-07] MEDS: FOLIC ACID 1 MG TABLET PO SCH (09:22)
[2017-05-07] MEDS: MULTIVITAMINS,THERAPEUTIC TABLET PO SCH (09:22)
[2017-05-07] MEDS: DIGOXIN 250 MCG TABLET PO SCH (09:23)
[2017-05-07 12:55] VITALS: BP 106/80
[2017-05-07] MEDS ORDERED: HYDR25CA PO (16:54)
[2017-05-07] MEDS ORDERED: DIPH50CA37 PO (16:54)
[2017-05-07] MEDS ORDERED: IBUP-1953 PO (16:54)
[2017-05-07 16:55] VITALS: BP 119/85
[2017-05-07] MEDS: RIVAROXABAN 10 MG TABLET PO SCH (17:34)
--- NOTE | 2017-05-07 19:21 | NUR ---
END OF SHIFT Endorsed client to incoming nurse, Client is in bed a/o x 4, he is with anxiety and mild weakness on BLE, sitter at bedside promoting safety. Jen is scheduled for discharge to home tomorrow. Client ambulated around the hallway for about 15 min using cane and sitter by side for assistance. Client consumes 75-100% of meals, adequate output, wet diaper x 3, stool x 3. Side rails x 2 up/padded. Seizure precautions. VTE 3, client is on Xarelto, Intermittent Pneumatic CD on and client tolerated well.
[2017-05-07 20:00] VITALS: BP 111/65
--- NOTE | 2017-05-07 20:00 | NUR ---
Start of Shift Pt is a 76 year old male admitted for ETOH dependence, placed on 5 day Ativan taper. Pt reported consuming Vodka 750ml/daily for more than 3 years. PMH: a-fib with pacemaker and on Xarelto and Digoxin, HTN, BPH, bilateral knee sx, hernia repair, arthritis. NKA, regular diet, fall/seizure precautions and full code. Upon assessment, pt is in bed alert/oriented x4, pt reports feeling anxious due to scheduled discharge tomorrow. VTE 3, Intermittent Pneumatic CD on and client tolerated well. Sitter at bedside promoting safety. Medications due, Safety measures in place, call light within reach, side rails up x2, bed locked and in low position. Will continue to monitor.
[2017-05-07] MEDS: ATORVASTATIN 40 MG TABLET PO SCH (20:23)
[2017-05-07] MEDS: ALFUZOSIN HCL 10 MG TAB.SR.24H PO SCH (20:23)
[2017-05-08] VITALS: BP 107/71
--- NOTE | 2017-05-08 | NUR ---
Vital Signs BP 107/71, pulse 83, resp 16, SpO2 96% room air, temp 97.9, no reports of pain 0/10 CIWA deferred d/t pt sleeping to assess while pt is awake as ordered. Safety measures in place. Will continue to monitor.
[2017-05-08 04:00] VITALS: BP 99/69
--- NOTE | 2017-05-08 04:00 | NUR ---
Vital Signs BP 99/69, pulse 65, resp 16, SpO2 96% room air, temp 98.2, no reports of pain 0/10 CIWA deferred d/t pt sleeping to assess while pt is awake as ordered. Safety measures in place. Will continue to monitor.
--- NOTE | 2017-05-08 07:20 | NUR ---
Start of Shift Sample Cutter received pt from shift production associate nurse, pt is a 76 year old male admitted on 05/01/17 for ETOH dependence. Pt has completed his 5 day Ativan taper, in preparation of pt's discharge this am. Pt reported consuming Vodka 750ml/daily for more than 3 years. PMH: a-fib with pacemaker and on Xarelto and Digoxin, HTN, BPH, bilateral knee sx, hernia repair, arthritis. NKA, regular diet, fall/seizure precautions and full code. Sample Cutter encounters pt in his room with attendant at bedside. Pt is calm, cooperative and pleasant with staff, makes needs known. . No s/s of distress noted. Bed in low position, wheels locked, side rails up x2, with call light within reach. Will continue to monitor, support and encourage according to plan of care.
[2017-05-08 08:19] VITALS: BP 115/84
[2017-05-08] MEDS: DIGOXIN 250 MCG TABLET PO SCH (08:31)
[2017-05-08] MEDS: MULTIVITAMINS,THERAPEUTIC TABLET PO SCH (08:31)
[2017-05-08] MEDS: FOLIC ACID 1 MG TABLET PO SCH (08:31)
[2017-05-08] MEDS: THIAMINE HCL 100 MG TABLET PO SCH (08:31)
--- NOTE | 2017-05-08 09:28 | NUR ---
Discharge Note Pt discharges per ambulation and is escorted to waiting transportation. Pt is in stable condition with VS WNL. Pt is A/O x4, skin intact. Pt denying HI/SI or A/VH. All discharge instruction provided with no further comments, questions or concerns voiced. Pt able to repeat all instruction and endorses an understanding of all education. Pt signed for and received all belongings, no home medications to return. LAst last CIWA of 2 d/t some anxiety related to discharge process. MD notified of pt's departure.
== END 2017-05-08 09:28 | disposition home or self-care (01) | DRG 895 ==
LOC: SRC 21:05
PROVIDERS: ADMIT Internal Medicine; ATTEND Internal Medicine
PROC: HZ2ZZZZ Detoxification Services for Substance Abuse Treatment (ICD-10-PCS; principal; 2017-05-01)
PROC: HZ31ZZZ Individual Counseling for Substance Abuse Treatment, Behavioral (ICD-10-PCS; 2017-05-03)
DX: F10.231 Alcohol dependence with withdrawal delirium (principal); D68.69 Other thrombophilia; K70.10 Alcoholic hepatitis without ascites; G62.1 Alcoholic polyneuropathy; Y90.8 Blood alcohol level of 240 mg/100 ml or more; I48.0 Paroxysmal atrial fibrillation; Z79.01 Long term (current) use of anticoagulants; F17.211 Nicotine dependence, cigarettes, in remission; E78.5 Hyperlipidemia, unspecified; N40.0 Benign prostatic hyperplasia without lower urinary tract symptoms; Z96.653 Presence of artificial knee joint, bilateral; Z95.0 Presence of cardiac pacemaker; F41.9 Anxiety disorder, unspecified; F11.10 Opioid abuse, uncomplicated; E86.0 Dehydration; D53.9 Nutritional anemia, unspecified; E07.81 Sick-euthyroid syndrome; F10.251 Alcohol dependence with alcohol-induced psychotic disorder with hallucinations; Z79.899 Other long term (current) drug therapy; I95.9 Hypotension, unspecified; G47.9 Sleep disorder, unspecified; F32.9 Major depressive disorder, single episode, unspecified
CPT/HCPCS: 36415; 70030-TC; 71010; 80307; 82746; 83690; 83735; 84100; 84443; 85025; 86580; 86592; 86705; 86803; 87340; 87806; 93005; 93307; 97116; 97530; A4663; C1758; G0480; J3411; J3490; J7040; Q0163

== ENCOUNTER 2017-05-05 15:26 | Outpatient (CLI) | payer BC, OTHER ==
[~2017-05-05 15:26] MED LIST: ALFU10TA10 PO; AMOX500C2 PO; ATOR80TA PO; DIGO250T PO; HYDR-3980 PO; RIVA20TA PO
== END 2017-05-05 23:59 | disposition other institution (70) ==
LOC: RAD 15:26
PROVIDERS: ATTEND Internal Medicine
DX: I67.82 Cerebral ischemia (principal); G31.9 Degenerative disease of nervous system, unspecified; I65.29 Occlusion and stenosis of unspecified carotid artery; R90.82 White matter disease, unspecified; S06.9X0A Unspecified intracranial injury without loss of consciousness, initial encounter; Z79.01 Long term (current) use of anticoagulants; X58.XXXA Exposure to other specified factors, initial encounter; Y93.89 Activity, other specified; Y92.89 Other specified places as the place of occurrence of the external cause; Y99.8 Other external cause status
CPT/HCPCS: 70450